=== PATIENT | female | born 1960 | race Two or more races ===

== ENCOUNTER 2019-01-14 19:18 | Emergency (ER) | payer BC, OTHER ==
--- NOTE | 2019-01-14 19:51 | NUR ---
CALLED FOR PT IN WAITING ROOM. NO RESPONSE
--- NOTE | 2019-01-14 20:00 | NUR ---
CALLED FOR PT IN WAITING ROOM. NO RESPONSE
--- NOTE | 2019-01-14 20:22 | NUR ---
CALLED FOR PT IN WAITING ROOM. NO RESPONSE
== END 2019-01-14 20:38 | disposition left against medical advice (07) ==
LOC: ER 19:20
DX: Z53.21 Procedure and treatment not carried out due to patient leaving prior to being seen by health care provider (principal)